=== PATIENT | female | born 1935 | race Caucasian/White ===

== ENCOUNTER 2016-07-04 13:56 | Emergency (ER) | payer MEDICARE ==
[~2016-07-04] VITALS: Ht 165.1 cm; Wt 68.0 kg
[~2016-07-04 13:56] MED LIST: ASPI-110 PO; ATOR40TA16 PO; AZOTAB2 PO; BALSALAZIDE PO; BLOOD GLUCOSE T1 TES; CITA20TA4 PO; D31000TA PO; FOSI40TA PO; GABA300C5 PO; HYDR25TA5 PO; LORA-373 PO; UROCTAB2 PO; VITA200017 PO
[2016-07-04 14:00] VITALS: BP 160/81; PULSE 75; RESP 15; TEMP 97.5; O2SAT 96
[2016-07-04] MEDS ORDERED: BALS750C PO (14:24)
[2016-07-04] MEDS ORDERED: POTAGRA PO (14:24)
[2016-07-04] MEDS ORDERED: CHOL1CAP32 (14:24)
[2016-07-04] MEDS ORDERED: ARTIDRO (14:24)
[2016-07-04] MEDS ORDERED: MULT1TAB (14:24)
[2016-07-04] MEDS ORDERED: TYLE325T PO (14:24)
--- NOTE | 2016-07-04 14:45 | PD ---
HPI Chief Complaint: Fall Time Seen by Provider: 14:35 Travel History International Travel<30 days: No Contact w/Intl Traveler<30days: No Traveled to known affect area: No History of Present Illness HPI 80-year-old female presents for evaluation after mechanical fall. She reports that today she was at the store when she tripped and fell, landing on her right outstretched hand and also twisting her left foot in the process of the fall. She is not having pain in the lateral left foot and right wrist. Pain is aching , worse with movement. Denies any head injury. Denies any neck or back injury. Denies any injury to the torso. She has no other complaints. 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) Coronary Artery Disease: Yes Diabetes: Yes Patient Takes Glucophage: No Diminished Hearing: No Endocrine: No Genitourinary: Yes (SLIGHT PROBLEMS WITH BLADDER) Hypertension: Yes Immune Disorder: No Kidney Stones: Yes Musculoskeletal: Yes Neurologic: Yes Psychiatric: No Reproductive: No Respiratory: No Immunizations Current: Yes ?: Not : 4 Para: 4 Past Surgical History Tonsillectomy: Yes Other Surgery: No Social History Alcohol Use: Yes (GLASS WINE ONCE A WEEK) Tobacco Use: No ("QUIT 40 YEARS AGO" STATED 07/04/16) Substance Use: No Allergies-Medications (Allergen,Severity, Reaction): Coded Allergies: No Known Allergies (Verified , 07/04/16) Reported Meds & Prescriptions Reported Meds & Active Scripts Active Tylenol-Codeine #3 (Acetaminophen-Codeine) 300-30 mg Tab 1-2 Tab PO Q6H PRN Citalopram (Citalopram Hydrobromide) 20 Mg Tab 20 Mg PO DAILY Reported Systane Contacts Soothing Opth Drops (Artificial Tear Solution Opth Drops) 12 Ml Drops QID PRN Tylenol (Acetaminophen) 325 Mg Tab 650 Mg PO Q6H PRN Centrum Silver Adult 50+ (Multiple Vitamins W/ Minerals) 1 Tab Tab D3-1000 (Cholecalciferol) 1,000 Unit Cap Potassium Citrate (Alkalinizer) 1 Gra Gra 10 Meq PO BID Balsalazide 750 Mg Cap 750 Mg PO TID Aspirin 81 (Aspirin) 81 Mg Tabdr 81 Mg PO DAILY 30 Days Hydrochlorothiazide 25 Mg Tab 25 Mg PO DAILY Gabapentin 300 Mg Cap 300 Mg PO HS Fosinopril (Fosinopril Sodium) 40 Mg Tab 40 Mg PO DAILY Atorvastatin (Atorvastatin Calcium) 40 Mg Tab 40 Mg PO HS Review of Systems Cardiovascular: No: Chest Pain or Discomfort, Syncope Musculoskeletal: Positive: Pain Skin: Positive Other (some bruising to the lateral left foot) Neurologic: No: Weakness, Dizziness, Syncope, Headache Physical Exam Narrative GENERAL: Well-developed well-nourished female in no acute distress SKIN: Warm and dry. HEAD: Atraumatic. Normocephalic. EYES: Pupils equal and round. No scleral icterus. No injection or drainage. ENT: No nasal bleeding or discharge. Mucous membranes pink and moist. NECK: Trachea midline. No JVD. CARDIOVASCULAR: Regular rate and rhythm. No murmur appreciated. RESPIRATORY: No accessory muscle use. Clear to auscultation. Breath sounds equal bilaterally. GASTROINTESTINAL: Abdomen soft, non-tender, nondistended. MUSCULOSKELETAL: Generalized mild tenderness to palpation to the right wrist and lateral left foot. There is pain with range of motion of the right wrist and left foot. There is no tenderness to palpation to the ankle joint, calf, knee. No tenderness to palpation to the neck or back. NEUROLOGICAL: Awake and alert. No obvious cranial nerve deficits. Motor grossly within normal limits. Normal speech. Data Data Last Documented VS Vital Signs Date Time Temp Pulse Resp B/P Pulse Ox O2 Delivery O2 Flow Rate FiO2 07/04/16 14:00 97.5 75 15 160/81 96 Orders Foot, Complete ([id number]) (07/04/16 ) Wrist, Complete ([id number]) (07/04/16 ) Splint Or Brace Apply/Monitor (07/04/16 15:03) [facility] Medical Decision Making Medical Screen Exam Complete: Yes Emergency Medical Condition: Yes Medical Record Reviewed: Yes Interpretation(s) Wrist x-ray CONCLUSION: Nondisplaced intra-articular fracture of the distal radius. Foot x-ray reveals chronic changes no acute abnormalities Differential Diagnosis Fracture, sprain, contusion, strain Narrative Course X-ray imaging reveals a nondisplaced intra-articular fracture of the distal radius. Sugar tong splint applied. The patient has seen Dr. Dumont in the past and she is encouraged to follow-up with him or another orthopedist in one week. She'll be given the name of another orthopedist that is unit controller today that she can follow-up with. She does have some pain in left foot that is causing difficulty walking. She does have a walker at home and she is encouraged to use that as needed. Diagnosis Primary Impression: Right wrist fracture Qualified Code: S62.101A - Right wrist fracture, closed, initial encounter Additional Impression: Strain of left foot Qualified Code: S96.912A - Strain of left foot, initial encounter Referrals: Nicolas Mahajan MD, J. Richard Richard MD Additional Instructions: Follow-up with Dr. Dumont or another orthopedist in the next week. Do not remove the splint. Pain medication as needed. Do not drive or drink alcohol when taking this medication. Walker as needed. Return for any emergent medical conditions. Med/Other Pt SpecificInfo: Prescription(s) given, Orthopedic Instructions Scripts Acetaminophen-Codeine (Tylenol-Codeine #3)300-30 mg Tab1-2 Tab PO Q6H PRN (PAIN ) #30 TAB Ref 0 Prov:Jessica Bowers MD 07/04/16 Disposition: 01 DISCHARGE HOME Condition: Stable Hieu Mayer Jul 04, 2016 14:45
--- NOTE | 2016-07-04 14:59 | RADHPO ---
EXAM DATE/TIME: 07/04/2016 14:48 [facility] COMPARISON: No previous studies available for comparison. INDICATIONS : Fell right wrist pain MEDICAL HISTORY : None. SURGICAL HISTORY : None. ENCOUNTER: Initial ACUITY: 1 day PAIN SCORE: 8/10 LOCATION: Right wrist FINDINGS: Three view examination of the right wrist demonstrates a nondisplaced intra-articular fracture of the distal radius. No joint dislocation. Prominent osteoarthritis of the first carpometacarpal joint. Th e distal ulnar is grossly intact. The carpal bones are grossly intact.. CONCLUSION: Nondisplaced intra-articular fracture of the distal radius. Ba Ibarra MD on July 04, 2016 at 14:56 Board Certified Radiologist. This report was verified electronically.
--- NOTE | 2016-07-04 15:00 | RADHPO ---
EXAM DATE/TIME: 07/04/2016 14:47 [facility] COMPARISON: No previous studies available for comparison. INDICATIONS : Fell, left foot pain MEDICAL HISTORY : None. SURGICAL HISTORY : None. ENCOUNTER: Initial ACUITY: 1 day PAIN SCORE: 8/10 LOCATION: Left foot FINDINGS: Three view examination of the left foot demonstrates no definite bony fracture. There is some subluxa tion at the fifth PIP joint which could be chronic in nature. Recommend correlation with point tender ness. There is a heel spur on the plantar surface of the calcaneus. No definite soft tissue swelling. . CONCLUSION: 1. No definite acute bony fracture. 2. Subluxation fifth PIP joint which may be chronic. 3. Heel spur. Ba Ibarra MD on July 04, 2016 at 14:58 Board Certified Radiologist. This report was verified electronically.
[2016-07-04] MEDS ORDERED: TYLETAB34 PO (15:12)
[2016-09-08] MEDS ORDERED: GABA300C5 PO (12:51)
[2016-10-06] MEDS ORDERED: CITA40TA4 PO (10:44)
[2016-10-06] MEDS ORDERED: FLUT1SPR5 EACH NARE (10:52)
== END 2016-07-04 15:33 | disposition home or self-care (01) ==
LOC: PHEFT 13:56
DX: S52.571A Other intraarticular fracture of lower end of right radius, initial encounter for closed fracture (principal); S96.912A Strain of unspecified muscle and tendon at ankle and foot level, left foot, initial encounter; E78.00 Pure hypercholesterolemia, unspecified; I25.10 Atherosclerotic heart disease of native coronary artery without angina pectoris; E11.9 Type 2 diabetes mellitus without complications; I10 Essential (primary) hypertension; Z86.73 Personal history of transient ischemic attack (TIA), and cerebral infarction without residual deficits; Z87.891 Personal history of nicotine dependence; W18.09XA Striking against other object with subsequent fall, initial encounter; Y93.89 Activity, other specified; Y92.512 Supermarket, store or market as the place of occurrence of the external cause; Y99.8 Other external cause status
CPT/HCPCS: 29125; 73110; 73630

== ENCOUNTER → 2017-03-01 | Day surgery (SDC) | payer MEDICARE ==
[~2017-03-01] VITALS: Ht 165.1 cm; Wt 66.5 kg
[~2017-03-01] MED LIST changes: +ARTIDRO; -ASPI-110 PO; +ASPI1TAB57 PO; -AZOTAB2 PO; +BACITRACIN TOP OINT 15 GM TUBE ONE; +BALS750C PO; -BALSALAZIDE PO; -BLOOD GLUCOSE T1 TES; +CALC600T PO; +CHLORHEXIDINE GLUCONATE 2 % 1 PACK (2 CLOTHS) TOPICAL PRN; -CITA20TA4 PO; +CITA40TA4 PO; -D31000TA PO; +FAMOTIDINE 20 MG/2 ML VIAL ONE; +FLUT1SPR5 EACH NARE; +INSULIN HUMAN REGULAR 1,000 UNITS/10 ML VIAL SQ PRN; +LACTATED RINGER'S 1000 ML IV PRN; +LIDOCAINE 1%/EPINEPHrine 1:100,000 SOLN 20 ML VIAL ONE; -LORA-373 PO; +METOPROLOL TARTRATE 25 MG TAB PO PRN; +MIDAZOLAM HCL 2 MG/2 ML VIAL ONE; +MULT1TAB; +POTAGRA PO; +POVIDONE IODINE 5% (ANTISEPSIS KIT) 4 APPLICATIONS EACH NARE PRN; +SODIUM BICARBONATE 8.4% INJ 50 MEQ/50 ML SYR ONE; +SODIUM BICARBONATE 8.4% INJ 50 ML ONE; +SODIUM CHLORID 0.9% 500 ML IV PRN; +TYLE325T PO; -UROCTAB2 PO; +VITA2000 PO; -VITA200017 PO
[2017-03-01] MEDS: ceFAZolin 2 GM PREMIX 50 ML IV SCH ×2 (09:22→10:02)
[2017-03-01 11:00] VITALS: PULSE 78
[2017-03-01 11:30] VITALS: PULSE 73; TEMP 97.6
--- NOTE | 2017-03-01 12:16 | MP ---
cc: EDIE SALDANA M.D. 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 OPERATION Excision frozen section squamous cell carcinoma right cheek, lower eyelid junction, 2.5 x 2 cm full-thickness skin graft from the right neck. SURGEON Dr. Saldana. ANESTHESIA General. 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 The patient underwent explanation of the excision frozen section process, reconstruction with a full-thickness skin graft in order to avoid distortion of the lower eyelid. The patient understands the possibility that the skin graft may or may not take and there may be future surgeries involved. She is willing to go ahead with the same procedure. PROCEDURE The patient was brought to the operating room, was given supine position. Anesthesia was started. Prep and drape was done. IV antibiotic had been given. Time-out was called and completed. The preoperative markings were reinforced. The area was injected with lidocaine 1% with epi and sodium bicarb mixture. Specimen was excised at the subcutaneous level and suture marked superior sent for frozen section. Hemostasis was completed. An oversized graft from the right neck was harvested following a crease line and it was trimmed to mid dermal level. It was applied to the defect with 5-0 Vicryl sutures and the donor site was closed with 4-0 Vicryl sutures as well. Frozen section report issued in the meantime indicated clear margins. The graft insetting was completed. A sterile dressing was applied. The patient remained stable. Intraoperative blood loss was less than 5 ccs. No complications. MD JONATHAN Morgan/KAROLINE /11:03 AM /12:08 PM
[2017-03-01 12:20] VITALS: BP 137/78; PULSE 69; RESP 14; O2SAT 98
== END | disposition home or self-care (01) ==
LOC: PHSDC 07:31
PROVIDERS: ATTEND Plastic Surgery
DX: D04.39 Carcinoma in situ of skin of other parts of face (principal); E11.9 Type 2 diabetes mellitus without complications; M54.2 Cervicalgia; H81.10 Benign paroxysmal vertigo, unspecified ear; K51.90 Ulcerative colitis, unspecified, without complications; R07.89 Other chest pain; R00.2 Palpitations
CPT/HCPCS: 00300; 11643; 15240; 88305; 88331; J0690; J2250; J7120

== ENCOUNTER 2017-08-16 14:22 | Emergency (ER) | payer MEDICARE ==
[~2017-08-16] VITALS: Ht 165.1 cm; Wt 68.7 kg
[~2017-08-16 14:22] MED LIST changes: -BACITRACIN TOP OINT 15 GM TUBE ONE; -CHLORHEXIDINE GLUCONATE 2 % 1 PACK (2 CLOTHS) TOPICAL PRN; +CYMB30CA PO; -FAMOTIDINE 20 MG/2 ML VIAL ONE; -HYDR25TA5 PO; -INSULIN HUMAN REGULAR 1,000 UNITS/10 ML VIAL SQ PRN; -LACTATED RINGER'S 1000 ML IV PRN; -LIDOCAINE 1%/EPINEPHrine 1:100,000 SOLN 20 ML VIAL ONE; -METOPROLOL TARTRATE 25 MG TAB PO PRN; -MIDAZOLAM HCL 2 MG/2 ML VIAL ONE; -POVIDONE IODINE 5% (ANTISEPSIS KIT) 4 APPLICATIONS EACH NARE PRN; -SODIUM BICARBONATE 8.4% INJ 50 MEQ/50 ML SYR ONE; -SODIUM BICARBONATE 8.4% INJ 50 ML ONE; -SODIUM CHLORID 0.9% 500 ML IV PRN
[2017-08-16 14:29] VITALS: BP 162/81; PULSE 85; RESP 16; TEMP 97.8; O2SAT 98
--- NOTE | 2017-08-16 15:11 | PD ---
HPI Chief Complaint: Fall Time Seen by Provider: 14:44 Travel History International Travel<30 days: No Contact w/Intl Traveler<30days: No Traveled to known affect area: No History of Present Illness HPI The patient was seen and examined in the presence of the nurse. This patient complains of an arm injury. She tripped over something outside and scraped her right arm on a cinderblock. She developed a skin tear. Duration 2 hours. She believes she hit her head as well. However she has no LOC or headache or neck pain. 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) Coronary Artery Disease: Yes Diabetes: Yes (TYPE 2 (NIDDM)) Patient Takes Glucophage: No Diminished Hearing: No Endocrine: No Gastrointestinal Disorders: Yes (GERD, COLITIS, HEMORRHOIDS) Genitourinary: Yes (HYPERACTIVE BLADDER, HX URETAL STONE) Hiatal Hernia: No Hypertension: Yes Immune Disorder: No Kidney Stones: Yes Musculoskeletal: Yes (NECK PAIN, OA KNEE, OSTEOPOROSIS, BILAT FRACTURED WRIST) Neurologic: Yes (TIA ) Psychiatric: No Reproductive: No Respiratory: No Immunizations Current: Yes Thyroid Disease: No Influenza Vaccination: Yes ?: Not : 4 Para: 4 Past Surgical History Abdominal Surgery: No AICD: No Cardiac Surgery: No Ear Surgery: No Endocrine Surgery: No Eye Surgery: Yes (BILAT CATARACT) Genitourinary Surgery: Yes (CYSTOSCOPY, L URETERAL STENT) Gynecologic Surgery: No Joint Replacement: Yes (RIGHT TKR) Oral Surgery: No Pacemaker: No Thoracic Surgery: No Tonsillectomy: Yes Other Surgery: No Social History Alcohol Use: Yes (GLASS WINE ONCE A WEEK) Tobacco Use: No ("QUIT 40 YEARS AGO" STATED 07/04/16) Substance Use: No Allergies-Medications (Allergen,Severity, Reaction): Coded Allergies: No Known Allergies (Verified Allergy, Unknown, 08/16/17) Reported Meds & Prescriptions Reported Meds & Active Scripts Active Fosinopril (Fosinopril Sodium) 40 Mg Tab 40 Mg PO DAILY Calcium/Vitamin D (Calcium Carbonate-Vitamin D) 600-400 Mg-Unit Tab 2 Tab PO BID Citalopram (Citalopram Hydrobromide) 40 Mg Tab 40 Mg PO DAILY Gabapentin 300 Mg Cap 300 Mg PO HS Reported Vitamin D3 (Cholecalciferol) 2,000 Unit Cap 2,000 Units PO DAILY Centrum Silver Adult 50+ (Multiple Vitamins W/ Minerals) 1 Tab Tab Potassium Citrate (Alkalinizer) 1 Gra Gra 10 Meq PO BID Balsalazide 750 Mg Cap 750 Mg PO TID Aspirin 81 (Aspirin) 81 Mg Tabdr 81 Mg PO DAILY 30 Days Review of Systems General / Constitutional: No: Fever HENT: No: Sore Throat Respiratory: No: Cough Gastrointestinal: No: Vomiting Physical Exam Narrative Right arm: There is a skin tear distal to the elbow. Skin is sloughed off and there is nothing to close or repair. SKIN: Focused skin assessment reveals no rash or ulcers. Skin is warm and dry. Palpation shows no induration or nodules. Psych: Normal mood and affect. Normal insight and judgment. NEUROLOGICAL: Awake and alert. Pupils are equal round and reactive. Motor and sensory grossly within normal limits. Five out of 5 muscle strength in all muscle groups. Normal speech. Data Data Last Documented VS Vital Signs Date Time Temp Pulse Resp B/P (MAP) Pulse Ox O2 Delivery O2 Flow Rate FiO2 08/16/17 14:29 97.8 85 16 162/81 (108) 98 MDM Medical Decision Making Medical Screen Exam Complete: Yes Emergency Medical Condition: Yes Medical Record Reviewed: Yes Differential Diagnosis Skin tear, laceration, contusion Narrative Course I have reviewed the patient's electronic medical record. Her wound is clean and dressed. Nothing to suture or repair. It will have to heal in on its own. Diagnosis Primary Impression: Skin tear of right upper arm without complication Qualified Codes: S41.111A - Laceration without foreign body of right upper arm , initial encounter Additional Instructions: The patient was advised to follow up with their physician and return if they worsen. Med/Other Pt SpecificInfo: Other Disposition: 01 DISCHARGE HOME Condition: Stable Greyson Varghese MD Aug 16, 2017 15:11
== END 2017-08-16 15:45 | disposition home or self-care (01) ==
LOC: PHED 14:22
DX: S41.111A Laceration without foreign body of right upper arm, initial encounter (principal); W01.198A Fall on same level from slipping, tripping and stumbling with subsequent striking against other object, initial encounter; F41.9 Anxiety disorder, unspecified; E78.00 Pure hypercholesterolemia, unspecified; E11.9 Type 2 diabetes mellitus without complications; I10 Essential (primary) hypertension; I25.10 Atherosclerotic heart disease of native coronary artery without angina pectoris; Z86.73 Personal history of transient ischemic attack (TIA), and cerebral infarction without residual deficits; Z87.891 Personal history of nicotine dependence
CPT/HCPCS: 99283

== ENCOUNTER 2017-12-31 09:54 | Observation (INO) ==
--- NOTE | 2017-12-23 15:49 | MH ---
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 HISTORY OF PRESENT ILLNESS: This pleasant 82-year-old female is being admitted today for revision total knee arthroplasty due to failure of implant. OTHER PAST HISTORY: The total knee was done over 7 years ago and is a Biomet knee. PAST MEDICAL HISTORY: The patient has a history of previous stroke, kidney disease, hypertension, diabetes, arthritis, and anxiety. CURRENT MEDICATIONS: Include: 1. Atorvastatin. 2. Fosinopril. 2. Fluticasone nasal spray. 3. Gabapentin. 4. Methylprednisolone. PAST SURGICAL HISTORY: Right total knee arthroplasty in the past. REVIEW OF SYSTEMS: Noncontributory. FAMILY HISTORY: Noncontributory. She does not smoke. She drinks socially. ALLERGIES: NO KNOWN ALLERGIES. PHYSICAL EXAMINATION: GENERAL: We find an 82-year-old female, well developed, well nourished, alert and oriented x 3, complaining of pain in her right knee. VITAL SIGNS: Blood pressure 136/80, pulse 80 and regular, respirations 16, temperature 98.1, pulse oximetry 96% on room air. HEENT: PERRL, EOMI. Ears, nose, and throat clear. NECK: Supple. LUNGS: Clear. HEART: Regular rate. ABDOMEN: Soft, positive bowel sounds, nontender. EXTREMITIES: Reveal the right knee to have 2+ swelling. Neurovascularly intact to her toes. IMPRESSION: Failed right total knee arthroplasty. PLAN: Admission for right total knee arthroplasty revision today. The patient understands the procedure well given a prescription for postoperative pain and anticoagulation control in the office. Plans are going to [facility] facility after surgical stay in the hospital. Kevin Dumont MD JRGayathri/hernesto , 03:27 PM , 03:36 PM
[2017-12-31] MEDS ORDERED: Metoprolol Tartrate 25 MG Tablet PO SCH (10:42)
[2017-12-31] MEDS ORDERED: Chlorhexidine Gluconate 2% 1 Pack (2 Cloths) TOPICAL SCH (10:42)
[2017-12-31] MEDS ORDERED: Chlorhexidine 4% Topical 120 APPLIC/120 ML Bottle TOPICAL SCH (11:00)
[2017-12-31] MEDS ORDERED: Sodium Chlor 0.9% Inj 500 ML IV.SIG SCH (11:00)
[2017-12-31] MEDS ORDERED: Sodium Chlor 0.9% Inj 40 ML, Bupivacaine Liposo PF 1.3% Inj 20 ML P-ARTICULR SCH ×2 (11:00)
[2017-12-31] MEDS ORDERED: Ropivacaine 0.5% PF Inj 20 ML Vial ONE (12:45)
[2017-12-31] MEDS ORDERED: Post-op Orders (for Pharmacy) OTHER STA (12:55)
[2017-12-31] MEDS ORDERED: Morphine Inj 4 MG/ML Vial IV.PUSH PRN (12:55)
[2017-12-31] MEDS ORDERED: Bisacodyl 10 MG Supp RECTAL PRN (12:55)
[2017-12-31] MEDS ORDERED: Tranexamic Acid Inj 1,000 MG in Sodium Chlor 0.9% Inj 100 ML IV.SIG SCH (13:00)
[2017-12-31] MEDS ORDERED: Lidocaine PF 1% Inj 5 ML Syringe OTHER ONE (13:00)
[2017-12-31] MEDS ORDERED: Tranexamic Acid Inj 1,000 MG/10 ML Ampul ONE (14:46)
--- NOTE | 2017-12-31 16:03 | P.BOP ---
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
[2017-12-31] MEDS ORDERED: fentaNYL Citrate Inj 100 MCG/2 ML Ampul ONE ×2 (16:10)
--- NOTE | 2017-12-31 17:01 | XR ---
EXAM DATE: 12/31/2017 4:49 PM EDT AGE/SEX: 82 years / Female INDICATIONS: Status post right total knee arthroplasty. CLINICAL DATA: This is the patient's initial encounter. Patient reports that signs and symptoms have been present for 1 day and indicates a pain score of Nonresponsive. MEDICAL/SURGICAL HISTORY: None. None. COMPARISON: No prior exams available for comparison. FINDINGS: Total knee arthroplasty with normal alignment of the femoral and tibial components. Soft tissue gas a bout the suprapatellar region. No distention of the suprapatellar soft tissues. External brace. CONCLUSION: Postoperative total knee arthroplasty with expected postsurgical findings. Electronically signed by: Avi Frederick MD 12/31/2017 5:00 PM EDT
[2017-12-31] MEDS: BALSALAZIDE 750 MG PO SCH (17:29)
--- NOTE | 2017-12-31 19:25 | MP ---
cc: Kevin Dumont MD DATE OF OPERATION: 12/31/2017 PREOPERATIVE DIAGNOSIS: Failed right total knee arthroplasty. POSTOPERATIVE DIAGNOSIS: Failed right total knee arthroplasty. SURGERY PERFORMED: Revision of patellar and tibial insert, right knee. SURGEON: Kevin Dumont MD TICK INSPECTOR: BRYAN Gonzalez ANESTHESIA: General intubation. DESCRIPTION OF PROCEDURE: The patient was brought to the operating room and placed on the operating table in supine position. After successful induction of general anesthesia, the patient's right knee, thigh and leg were prepped and draped in the usual manner. An incision was then made through the old anterior medial parapatellar incision, 9 inches in length, and carried down through the subcutaneous tissue and deep fascia to the joint. Clear serous fluid removed and sent to the lab for a stat Gram stain, which revealed a few white cells, no bacteria seen. Abundant scar was noted throughout the knee joint. The knee prior to surgery only had range of motion from -5 of extension to 80 of flexion. After releasing, she had full extension and full flexion to 130 degrees. The patella was found to be completely covered over with a scar and the scar removed and then the patella was noted to be loose and removed easily. A size small patella was selected with a single peg, the single peg hole drilled and the small patella fit perfectly. The trial was inserted. Next, the knee was flexed and all scar debrided from the femur and tibia. The tibial insert was removed by removing the clamp on the tibial insert and some wear was noted. There was quite a few fragments of cement noted throughout the knee joint, which most likely contributed to the grinding the patient felt prior to surgery. The wound was then irrigated copiously with antibiotic solution and 1 gram of IV vancomycin and 2 of Ancef given to the patient. Tourniquet deflated at this point, total tourniquet time being 51 minutes at 300 mmHg pressure. Meticulous hemostasis achieved with the help of TXA as well. Then, 20 of Exparel and 40 of normal saline was injected around the knee joint for extra pain control. A liner was then exchanged for the old liner, which was worn, size 10 x 63/67. The patella size was a 31 x 8 mm patella. After the new liner was inserted and the clip put in, full range of motion was appreciated. The patella was cemented in place using 1 batch of antibiotic Biomet cement. After the cement hardened and excess cement removed, the deep fascia was approximated with running #2 Quill, subcutaneous tissue approximated with running 2-0 and 3-0 Quill suture and a Prineo dressing and knee immobilizer. No drain utilized. Estimated blood loss was 30 mL. Sponge and suture counts were correct. The patient tolerated the procedure well and left the operating room in stable condition. BRYAN Gonzalez, was present during the entire procedure to include patient positioning and the procedure. The medical necessity of a nurse practitioner nurse first assist was indicated in this case due to the surgical complexity of the case itself. During the surgical case, the digital camera technician was working the back table while my surgical technologist BRYAN was directly assisting me. J. MD CHIP Silver/raymon , 03:35 PM , 03:45 PM
[2017-12-31] MEDS: Senna/Docusate Sodium 8.6/50 MG Tablet PO SCH (22:07)
[2017-12-31] MEDS: Gabapentin 300 MG Capsule PO SCH (22:08)
[2017-12-31] MEDS: Multivitamin/Minerals Therapeutic Tablet PO SCH (22:08)
[2018-01-01 05:38] LABS: Hematocrit 29.3 % (35.0-46.0); Hemoglobin 9.9 gm/dL (11.6-15.3)
[2018-01-01] MEDS ORDERED: Citalopram 20 MG Tablet PO SCH ×2 (09:00)
[2018-01-01] MEDS: Potassium Chloride 10 MEQ ER Capsule PO SCH ×2 (09:56→20:55)
[2018-01-01] MEDS: Calcium/Vitamin D 250/125 MG Tablet PO SCH (09:56)
[2018-01-01] MEDS: Multivitamin/Minerals Therapeutic Tablet PO SCH ×2 (09:56→20:55)
[2018-01-01] MEDS: Lisinopril 20 MG Tablet PO SCH (09:56)
[2018-01-01] MEDS: Senna/Docusate Sodium 8.6/50 MG Tablet PO SCH ×2 (09:56→20:55)
--- NOTE | 2018-01-01 10:19 | P.PNOP ---
Subjective Interval history: Pt having some pain in knee today. Physical Exam Vital signs: Vital Signs 12/31/17 10:30 12/31/17 15:58 12/31/17 16:15 Temperature 98.3 F 98.1 F Pulse Rate 74 78 73 Respiratory Rate 18 16 16 Blood Pressure 181/85 H 131/60 171/72 H Pulse Oximetry 95 95 12/31/17 16:30 12/31/17 16:45 12/31/17 17:00 Temperature 97.2 F L Pulse Rate 76 73 75 Respiratory Rate 16 16 18 Blood Pressure 174/77 H 171/76 H 177/84 H Pulse Oximetry 95 95 97 12/31/17 18:46 12/31/17 20:00 12/31/17 23:00 Temperature 98 F Pulse Rate 79 Respiratory Rate 18 18 18 Blood Pressure 154/69 H Pulse Oximetry 98 01/01/18 00:00 01/01/18 04:00 01/01/18 08:00 Temperature 97.8 F 97.8 F 98.8 F Pulse Rate 92 H 79 94 H Respiratory Rate 16 18 18 Blood Pressure 117/74 142/64 H 111/60 Pulse Oximetry 95 96 96 Intake & Output 12/31/17 01/01/18 01/01/18 18:59 06:59 18:59 Intake Total 1999 / 1999 1680 / 1680 Output Total 650 / 650 Balance 1350 / 1350 1680 / 1680 Weight 68.9 kg 69.7 kg Intake: IV 1000 / 1000 1200 / 1200 LR 1000 mL Inj 1,000 ML @ 80 1000 / 1000 mls/hr IV.CONT .[id number] JOHN Rx# :[id number] LR 1000 mL Inj 1,000 ML @ 30 1000 / 1000 mls/hr IV.SIG .Q24H JOHN Rx#: [id number] Ancef Inj 1,000 MG In NS Inj 200 / 200 100 ML @ 200 mls/hr IV.SIG Q6H JOHN Rx#:[id number] Oral 480 / 480 Anesthesia Amount 1000 / 1000 Output: Urine 350 / 350 Estimated Blood Loss 300 / 300 Other: # Voids 1 3 Date of Last Bowel Movement 12/30/17 12/30/17 Weight On Admission 68.9 kg - Constitutional no acute distress Results - Labs CBC & Chem 7: 01/01/18 04:44 Laboratory Results - last 24 hr 12/31/17 01/01/18 11:27 04:44 Hgb 9.9 L Hct 29.3 L Blood Type B Positive Blood Type Recheck Required Antibody Screen Negative Microbiology 12/31/17 13:38 Wound - Knee Gram Stain - Final - Imaging Impressions Knee X-Ray 12/31/17 12:55 CONCLUSION: Postoperative total knee arthroplasty with expected postsurgical findings. Assessment and Plan - Attending Attestation Attending Attestation: Sitting in chair, NV intact to toes. Dressing dry and intact. No calf tenderness. Plan PT today possible dc to home tomorrow with [facility] and PT.
--- NOTE | 2018-01-01 10:20 | P.DCO ---
- Physical Therapy Order: Evaluate and treat, Improve ambulation, Strength and gait training - Home Health Nursing Order: Medical education, Nursing assessment with vital signs - Certification I have seen patient Adilia Jay on 01/01/18. My clinical findings support the need for the requested home health care services because: High risk of falls I certify that my clinical findings support that this patient is homebound because: Post-op weakness, Unsteady gait/balance
[2018-01-01] MEDS: BALSALAZIDE 750 MG PO SCH ×3 (10:42→17:49)
--- NOTE | 2018-01-01 11:52 | P.CONFP ---
History of Present Illness Service: Family Practice <Torres Morrow 01/01/18 11:52> Consult date: 01/01/18 <Torres Morrow 01/01/18 11:52> Requesting Physician: Bc Dumont <Torres Morrow 01/01/18 11:52> Reason for Consult: Medical Management <Torres Morrow 01/01/18 11:52> Primary Care Provider: Radha Montalvo MD <Treva Mittal - 01/06/18 15:56> Radha Montalvo MD <oTrres Morrow 01/01/18 11:52> Family Provider: Radha Montalvo MD <Treva Mittal - 01/06/18 15:56> Radha Montalvo MD <Torres Morrow 01/01/18 11:52> History of Present Illness: Mrs. Jay is a 82-year-old female admitted for revision of her right knee arthroplasty. Patient reports that after her previous knee replacement "some plastic broke" requiring her to have revision. Dr. Dumont completed an uncomplicated revision of her right knee arthroplasty on 12/31/17. Today patient states that she is doing well with minimal right knee pain. She reports that she is already had one session of physical therapy that "went well." She was notified by her surgical team that she will likely be discharged home either "tomorrow or the next day." She reports no bowel movements, however she does report moving bowel gas. She is unable to provide a complete medical history and medication review possibly due to recent pain medication versus mild dementia. Medication review and history will be obtained from chart review. Otherwise she has no acute complaints and denies a complete review of systems including but not limited to any fevers, chills, shortness of breath, chest pain, NVD, abdominal pain, or calf tenderness at this time. <Torres Morrow 01/01/18 11:52> Review of Systems Per HPI <Torres Morrow 01/01/18 11:52> PMFSH - History History Provided By: Patient <Torres Morrow 01/01/18 11:52> - Medical History Medical History: Medical History (Last Reviewed 01/01/18 @ 08:03 by Hilary Myers) History of kidney stones Anxiety Arthritis Constipation Depression Diabetes High cholesterol History of blood product transfusion Hypertension Joint pain Overactive bladder TIA (transient ischemic attack) Urinary frequency Wears glasses <Treva Mittal - 01/06/18 15:56> Medical History (Last Reviewed 01/01/18 @ 08:03 by Hilary Myers) History of kidney stones Anxiety Arthritis Constipation Depression Diabetes High cholesterol History of blood product transfusion Hypertension Joint pain Overactive bladder TIA (transient ischemic attack) Urinary frequency Wears glasses <Torres Morrow 01/01/18 11:52> - Surgical History Surgical History: Surgical History (Last Reviewed 01/01/18 @ 08:03 by Hilary Myers) History of adenoidectomy History of arthroplasty of right knee History of cataract removal with insertion of prosthetic lens <Treva Mittal 01/06/18 15:56> Surgical History (Last Reviewed 01/01/18 @ 08:03 by Hilary Myers) History of adenoidectomy History of arthroplasty of right knee History of cataract removal with insertion of prosthetic lens <Torres Morrow 01/01/18 11:52> - Tobacco History Second Hand Smoke Exposure: No <Torres Morrow 01/01/18 11:52> Smoking Status: Former smoker <Torres Morrow 01/01/18 11:52> - Alcohol History How Often Do You Have a Drink Containing Alcohol: 2 to 3 times a week <Torres Morrow Gianni Yumiko 01/01/18 11:52> - Substance Use History Substance History: No History of Abuse <Torres Morrow Gianni Yumiko 01/01/18 11:52> - Travel History [facility] Within the Last 8 Weeks: No <Torres Morrow Gianni 11:52> Recent Travel Out of the Country Within the Last 8 Weeks: No <Torres Morrow Gianni 01/01/18 11:52> - Immunization History Tetanus Immunization: <5 Years <Torres Morrow Gianni 01/01/18 11:52> Hx Influenza Vaccine This Season: Yes <Torres Morrow 01/01/18 11:52> Medications and Allergies Allergies Allergy/AdvReac Type Severity Reaction Status Date / Time No Known Allergies Allergy Verified 12/31/17 10:45 <Treva Mittal 01/06/18 15:56> Home Medications Medication Instructions Recorded Confirmed Type amoxicillin 250 mg PO TID 12/21/17 12/31/17 History aspirin [Adult Low Dose Aspirin] 81 mg PO DAILY 12/21/17 12/31/17 History atorvastatin 40 mg PO DAILY 12/21/17 12/31/17 History balsalazide 750 mg PO TID 12/21/17 12/31/17 History calcium carbonate-vitamin D3 1 cap PO DAILY 12/21/17 12/31/17 History [Calcium 600 with Vitamin D3] citalopram 20 mg PO HS 12/21/17 01/01/18 History duloxetine 60 mg PO DAILY 12/21/17 12/31/17 History fosinopril 40 mg PO DAILY 12/21/17 12/31/17 History gabapentin 300 mg PO HS 12/21/17 12/31/17 History potassium citrate 10 meq PO BID 12/21/17 12/31/17 History <Treva Mittal M - 01/06/18 15:56> Active Medications: Active Medications Hydrocodone Bitart/Acetaminophen (Edmond 7.5/325) 1 tab PO Q4H PRN PRN Reason: PAIN LESS THAN 5 ON SCALE Last Admin: 01/01/18 10:18 Dose: 1 tab Hydrocodone Bitart/Acetaminophen (Edmond 7.5/325) 2 tab PO Q6H PRN PRN Reason: PAIN SCALE 5 TO 10 Al Hydroxide/Mg Hydroxide (Milk Of Magnesia Liq) 30 ml PO BID PRN PRN Reason: Mild Constipation Apixaban (Eliquis) 2.5 mg PO BID [facility] Aspirin (Ecotrin) 81 mg PO DAILY [facility] Last Admin: 01/01/18 09:56 Dose: 81 mg Atorvastatin Calcium (Lipitor) 40 mg PO DAILY [facility] Last Admin: 01/01/18 09:56 Dose: 40 mg Bisacodyl (Dulcolax Supp) 10 mg RECTAL DAILY PRN PRN Reason: SEVERE CONSITIPATION Calcium/Vitamin D (Oscal With D 250/125 Mg) 2 tab PO DAILY [facility] Last Admin: 01/01/18 09:56 Dose: 2 tab Chlorhexidine Gluconate (Chlorhexidine 2% Cloth) 3 pack [employer] [facility] Last Admin: 12/31/17 10:33 Dose: 3 pack Chlorhexidine Gluconate (Hibiclens 4% Topical) 1 applicatio [employer] [facility] Last Admin: 12/31/17 10:30 Dose: 1 applicatio Citalopram Hydrobromide (Celexa) 20 mg PO DAILY [facility] Duloxetine HCl (Cymbalta) 60 mg PO DAILY [facility] Gabapentin (Neurontin) 300 mg PO HS [facility] Last Admin: 12/31/17 22:08 Dose: 300 mg Lactated Ringer's (Lr 1000 Ml Inj) 1,000 mls @ 30 mls/hr IV.SIG .Q24H [facility] Last Infusion: 12/31/17 14:15 Dose: Infused Sodium Chloride (Ns Inj) 500 mls @ 30 mls/hr IV.SIG .Q10H [facility] Last Admin: 12/31/17 11:32 Dose: Not Given Lactated Ringer's (Lr 1000 Ml Inj) 1,000 mls @ 80 mls/hr IV.CONT .[id number] [facility] Last Infusion: 01/01/18 05:00 Dose: Infused Lactulose (Lactulose Liq) 30 ml PO DAILY PRN PRN Reason: SEVERE CONSITIPATION Lisinopril (Prinivil) 40 mg PO DAILY [facility] Last Admin: 01/01/18 09:56 Dose: 40 mg Metoprolol Tartrate (Lopressor) 25 mg PO [employer] [facility] Stop: 01/03/18 10:41 Last Admin: 12/31/17 11:32 Dose: Not Given Miscellaneous Information ([facility]) 1 each OTHER UNSCH PRN PRN Reason: SEE LABEL COMMENTS Stop: 01/01/18 15:58 Morphine Sulfate (Morphine Inj) 2 mg IV.PUSH Q3H PRN PRN Reason: BREAKTHROUGH PAIN Multivitamins/Minerals (Theragran-M) 1 tab PO BID [facility] Stop: 03/01/18 20:59 Last Admin: 01/01/18 09:56 Dose: 1 tab Ondansetron HCl (Zofran Odt) 4 mg PO Q6H PRN PRN Reason: NAUSEA OR VOMITING Patient Own Medication ( Balsalazide [ Balsalazide] 750 Mg) 0 each PO TID [facility] Last Admin: 01/01/18 10:42 Dose: Not Given Potassium Chloride (Kcl) 10 meq PO BID [facility] Last Admin: 01/01/18 09:56 Dose: 10 meq Povidone Iodine (Betadine 5% Antisepsis Kit) 1 applicatio EACH [employer] [facility] Stop: 01/03/18 10:41 Last Admin: 12/31/17 11:33 Dose: Not Given Senna/Docusate Sodium (Manisha-Colace) 1 tab PO BID [facility] Last Admin: 01/01/18 09:56 Dose: 1 tab Sennosides (Senokot) 17.2 mg PO BID PRN PRN Reason: Moderate Constipation Sodium Chloride (Ns Flush) 2 ml IV.FLUSH BID [facility] Last Admin: 01/01/18 10:00 Dose: 2 ml Sodium Chloride (Ns Flush) 2 ml IV.FLUSH PRN PRN PRN Reason: FLUSH AFTER USING IV ACCESS <Torres Morrow H - 01/01/18 11:52> Exam Vital signs: Vital Signs 12/31/17 15:58 12/31/17 16:15 12/31/17 16:30 Temperature 98.1 F Pulse Rate 78 73 76 Respiratory Rate 16 16 16 Blood Pressure 131/60 171/72 H 174/77 H Pulse Oximetry 95 95 95 12/31/17 16:45 12/31/17 17:00 12/31/17 18:46 Temperature 97.2 F L Pulse Rate 73 75 Respiratory Rate 16 18 18 Blood Pressure 171/76 H 177/84 H Pulse Oximetry 95 97 12/31/17 20:00 12/31/17 23:00 01/01/18 00:00 Temperature 98 F 97.8 F Pulse Rate 79 92 H Respiratory Rate 18 18 16 Blood Pressure 154/69 H 117/74 Pulse Oximetry 98 95 01/01/18 04:00 01/01/18 08:00 Temperature 97.8 F 98.8 F Pulse Rate 79 94 H Respiratory Rate 18 18 Blood Pressure 142/64 H 111/60 Pulse Oximetry 96 96 Intake & Output 12/31/17 01/01/18 01/01/18 18:59 06:59 18:59 Intake Total 1999 / 1999 1680 / 1680 Output Total 650 / 650 Balance 1350 / 1350 1680 / 1680 Weight 68.9 kg 69.7 kg Intake: IV 1000 / 1000 1200 / 1200 LR 1000 mL Inj 1,000 ML @ 80 1000 / 1000 mls/hr IV.CONT .[id number] [facility] Rx# :[id number] LR 1000 mL Inj 1,000 ML @ 30 1000 / 1000 mls/hr IV.SIG .Q24H [facility] Rx#: [id number] Ancef Inj 1,000 MG In NS Inj 200 / 200 100 ML @ 200 mls/hr IV.SIG Q6H [facility] Rx#:[id number] Oral 480 / 480 Anesthesia Amount 1000 / 1000 Output: Urine 350 / 350 Estimated Blood Loss 300 / 300 Other: # Voids 1 3 Date of Last Bowel Movement 12/30/17 12/30/17 12/30/17 Weight On Admission 68.9 kg <Torres Morrow - 01/01/18 11:52> Narrative: GENERAL: Elderly female sitting up in chair watching television in no acute distress. SKIN: Warm and dry. No rash. HEENT: Atraumatic, normocephalic with extraocular motions intact. No rhinorrhea. No visible lymphadenopathy or jugulovenous distension appreciated. CARDIOVASCULAR: Regular rate and rhythm without obvious murmurs, gallops, or rubs. 2+ pulses in all four extremities. RESPIRATORY: Clear to auscultation bilaterally with no crackles, wheezes, or rhonchi. No increased work of breathing. GASTROINTESTINAL: Abdomen soft, non-tender, nondistended with positive bowel sounds. No masses appreciated. MUSCULOSKELETAL: No cyanosis or edema. No left calf tenderness. RLE: Right lower extremity currently Saroj wrapped with device for icing the knee in place. Saroj wrap CDI. 2+ DP/PT pulses. Appropriate capillary refill. Normal range of motion at the ankle and digits. NEURO/PSYCH: Afocal. Awake, alert, and oriented x3, however unable to provide a complete review of systems and history possibly secondary to pain medication versus possible dementia. Normal speech and judgement. <Torres Morrow H - 01/01/18 11:52> Results - Labs Result diagrams: 01/02/18 05:02 01/02/18 05:02 <Treva Mittal - 01/06/18 15:56> Abnormal lab results 01/01/18 Range/Units 04:44 Hgb 9.9 L (11.6-15.3) gm/dL Hct 29.3 L (35.0-46.0) % Short CBC 01/01/18 Range/Units 04:44 Hgb 9.9 L (11.6-15.3) gm/dL Hct 29.3 L (35.0-46.0) % <Torres Morrow H - 01/01/18 11:52> - Imaging Impressions Knee X-Ray 12/31/17 12:55 CONCLUSION: Postoperative total knee arthroplasty with expected postsurgical findings. 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 Code(s): T84.012A - Broken internal right knee prosthesis, initial encounter Status: Acute (3) History of TIA (transient ischemic attack) Code(s): Z86.73 - Personal history of transient ischemic attack (TIA), and cerebral infarction without residual deficits Status: Acute (4) GERD (gastroesophageal reflux disease) Code(s): K21.9 - Gastro-esophageal reflux disease without esophagitis Status: Acute Qualifiers: Esophagitis presence: esophagitis presence not specified Qualified Code(s) : K21.9 - Gastro-esophageal reflux disease without esophagitis (5) Overactive bladder Code(s): N32.81 - Overactive bladder Status: Acute (6) Type 2 diabetes mellitus Code(s): E11.9 - Type 2 diabetes mellitus without complications Status: Acute (7) Hypertension Code(s): I10 - Essential (primary) hypertension Status: Acute Qualifiers: Hypertension type: essential hypertension Qualified Code(s): I10 - Essential (primary) hypertension (8) Hyperlipidemia Code(s): E78.5 - Hyperlipidemia, unspecified Status: Acute Qualifiers: Hyperlipidemia type: unspecified Qualified Code(s): E78.5 - Hyperlipidemia , unspecified (9) Ulcerative colitis Code(s): K51.90 - Ulcerative colitis, unspecified, without complications Status: Acute (10) Anxiety Code(s): F41.9 - Anxiety disorder, unspecified Status: Acute (11) Nutrition, metabolism, and development symptoms Code(s): R63.8 - Other symptoms and signs concerning food and fluid intake Status: Acute (12) DVT prophylaxis Status: Acute <Treva Mittal - 01/06/18 15:56> (1) Status post revision of total replacement of right knee Code(s): Z96.651 - Presence of right artificial knee joint Status: Acute Plan: Patient admitted under orthopedic surgery service for revision of her right knee arthroplasty Procedure uncomplicated per report Patient currently without complaint and pain controlled Continue with hydrocodone as needed for pain Patient to continue with PT Per orthopedic surgery, plan for possible discharge home tomorrow with home health and physical therapy (2) 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 Code(s): T84.012A - Broken internal right knee prosthesis, initial encounter Status: Acute Plan: Please see plan as above (3) History of TIA (transient ischemic attack) Code(s): Z86.73 - Personal history of transient ischemic attack (TIA), and cerebral infarction without residual deficits Status: Acute Plan: Patient with history of TIA Continue home aspirin (4) GERD (gastroesophageal reflux disease) Code(s): K21.9 - Gastro-esophageal reflux disease without esophagitis Status: Acute Qualifiers: Esophagitis presence: esophagitis presence not specified Qualified Code(s) : K21.9 - Gastro-esophageal reflux disease without esophagitis Plan: Patient with history of gastroesophageal reflux disease Calcium carbonate as needed for reflux (5) Overactive bladder Code(s): N32.81 - Overactive bladder Status: Acute Plan: Patient with history of overactive bladder Continue Toviaz, patient to bring medication for verification as it is not on formulary (6) Type 2 diabetes mellitus Code(s): E11.9 - Type 2 diabetes mellitus without complications Status: Acute Plan: Patient with previous history of type 2 diabetes mellitus Patient currently controlling glucose via dietary measures with most recent hemoglobin A1c per chart review of 6.2 Diabetic diet ordered -Patient to continue with daily gabapentin for diabetic neuropathy BMP in a.m. (7) Hypertension Code(s): I10 - Essential (primary) hypertension Status: Acute Qualifiers: Hypertension type: essential hypertension Qualified Code(s): I10 - Essential (primary) hypertension Plan: Patient with a history of essential hypertension Continue with lisinopril 40 mg daily (8) Hyperlipidemia Code(s): E78.5 - Hyperlipidemia, unspecified Status: Acute Qualifiers: Hyperlipidemia type: unspecified Qualified Code(s): E78.5 - Hyperlipidemia , unspecified Plan: Patient with history of hyperlipidemia Continue with atorvastatin 40 mg daily (9) Ulcerative colitis Code(s): K51.90 - Ulcerative colitis, unspecified, without complications Status: Acute Plan: Patient with history of ulcerative colitis -Continue with Balsalazide 3 times daily, patient to bring medication for pharmacy verification as it is not on formulary (10) Anxiety Code(s): F41.9 - Anxiety disorder, unspecified Status: Acute Plan: Patient with history of anxiety Patient currently on duloxetine 60 mg daily per chart review, ordered (11) Nutrition, metabolism, and development symptoms Code(s): R63.8 - Other symptoms and signs concerning food and fluid intake Status: Acute Plan: -Fluids: Tolerating fluids by mouth with appropriate hydration Diet: Diabetic diet as tolerated Electrolytes: Check BMP in a.m. Prophylaxis: Calcium carbonate as needed for reflux, clonidine as needed for hypertension, DuoNeb's as needed for shortness of breath, Zofran as needed for nausea/vomiting, Manisha-Colace scheduled for constipation, multivitamin daily (12) DVT prophylaxis Status: Acute Plan: Patient to start Eliquis twice daily today as she is postop day 1, per orthopedic surgery <Torres Morrow - 01/01/18 11:13> - Attending Attestation The exam, history, and the medical decision-making described in the above note were completed with the assistance of the resident physician. I reviewed and agree with the findings presented. I attest that I had a [id number] encounter with the patient on the same day, and personally performed and documented my assessment and findings in the medical record. she is doing very well post op. Dr Morrow straightened out her antidepressants <Treva Mittal - 01/06/18 15:56>
[2018-01-01] MEDS: Duloxetine 60 MG DR Capsule PO SCH (14:48)
[2018-01-01] MEDS: Gabapentin 300 MG Capsule PO SCH (20:55)
[2018-01-01] MEDS ORDERED: Citalopram 20 MG Tablet PO ONE (21:41)
[2018-01-02 01:36] VITALS: RESP 18
[2018-01-02 05:31] LABS: Baso % (Auto) 0.3 % (0.0-2.0); Eos # (Auto) 0.2 th/mm3 (0.0-0.4); Eos % (Auto) 2.2 % (0.0-4.0); Hematocrit 28.4 % (35.0-46.0); Hemoglobin 9.5 gm/dL (11.6-15.3); Lymph # (Auto) 1.7 th/mm3 (1.0-4.8); Lymph % (Auto) 21.2 % (9.0-44.0); Mean Corpuscular HGB Conc 33.6 % (32.0-36.0); Mean Corpuscular Hemoglobin 28.4 pg (27.0-34.0); Mean Corpuscular Volume 84.6 fL (80.0-100.0); Mean Platelet Volume 8.7 fL (7.0-11.0); Mono # (Auto) 0.8 th/mm3 (0.0-0.9); Mono % (Auto) 9.3 % (0.0-8.0); Neut # (Auto) 5.5 th/mm3 (1.8-7.7); Platelet Count 210 th/mm3 (150-450); Red Blood Count 3.35 mil/mm3 (4.00-5.30); Red Cell Distribution Width 14.4 % (11.6-17.2); White Blood Count 8.3 th/mm3 (4.0-11.0)
[2018-01-02 05:53] LABS: Alanine Aminotransferase 15 U/L (10-53); Albumin 3.4 g/dL (3.4-5.0); Anion Gap 8 meq/L (5-15); Aspartate Aminotransferase 14 U/L (15-37); Blood Urea Nitrogen 20 mg/dL (7-18); Calcium 8.3 mg/dL (8.5-10.1); Carbon Dioxide 28.3 meq/L (21.0-32.0); Chloride 109 meq/L (98-107); Glomerular Filtration Rate 58 mL/min (>89); Glucose,Random 109 mg/dL (74-106); Sodium 145 meq/L (136-145)
[2018-01-02 05:55] LABS: Alkaline Phosphatase 55 U/L (45-117); Total Protein 6.2 g/dL (6.4-8.2)
--- NOTE | 2018-01-02 08:54 | P.PNFP ---
Subjective Interval history: Patient seen and examined this morning. No acute events overnight per nursing staff. Overnight medical team paged by staff that patient was requesting daily Celexa which was ordered. Per chart review, there was discussion of her being weaned off the medication at her previous appointment in December. Yesterday we discussed this medication and she stated that "she did not know if she took the medication." Of note, patient had recently received pain medication which could have altered her mentation. Otherwise she has no acute complaints. She states that her pain is better than it was yesterday she is hopeful she can go home "either today or tomorrow." Patient has not yet had a bowel movement, but does endorse passing bowel gas. She denies a complete review of systems at this time including but not limited to any fever, chills, shortness of breath, chest pain, NVD, abdominal pain, or calf tenderness. <Torres Morrow H - 01/02/18 08:54> Results - Labs Result diagrams: 01/02/18 05:02 01/02/18 05:02 <Treva Mittal M - 01/06/18 15:58> Abnormal lab results 01/02/18 01/02/18 Range/Units 05:02 05:02 RBC 3.35 L (4.00-5.30) mil/mm3 Hgb 9.5 L (11.6-15.3) gm/dL Hct 28.4 L (35.0-46.0) % [place] % (Auto) 9.3 H (0.0-8.0) % Chloride 109 H (98-107) meq/L BUN 20 H (7-18) mg/dL Estimated GFR 58 L (>89) mL/min Random Glucose 109 H (74-106) mg/dL Calcium 8.3 L (8.5-10.1) mg/dL AST 14 L (15-37) U/L Total Protein 6.2 L (6.4-8.2) g/dL Short CBC 01/02/18 Range/Units 05:02 WBC 8.3 (4.0-11.0) th/mm3 Hgb 9.5 L (11.6-15.3) gm/dL Hct 28.4 L (35.0-46.0) % Plt Count 210 (150-450) th/mm3 BMP 01/02/18 05:02 Sodium 145 Potassium 4.0 Chloride 109 H Carbon Dioxide 28.3 BUN 20 H Creatinine 0.92 Calcium 8.3 L Liver Function 01/02/18 Range/Units 05:02 Total Bilirubin 0.5 (0.2-1.0) mg/dL AST 14 L (15-37) U/L ALT 15 (10-53) U/L Alkaline Phosphatase 55 (45-117) U/L Albumin 3.4 (3.4-5.0) g/dL <Torres Morrow - 01/02/18 08:54> Physical Exam Vital signs: Vital Signs 01/01/18 19:32 01/01/18 20:00 01/02/18 00:00 Temperature 98.2 F 98.2 F 98.4 F Pulse Rate 81 90 80 Respiratory Rate 18 Blood Pressure 164/71 H 162/72 H 151/70 H Pulse Oximetry 98 97 95 Intake & Output 01/01/18 01/02/18 01/02/18 18:59 06:59 18:59 Intake Total 580 / 580 Balance 580 / 580 Weight 69.2 kg Intake: IV 100 / 100 Oral 480 / 480 Other: # Voids 2 Date of Last Bowel Movement 12/30/17 12/30/17 <Torres Morrow - 01/02/18 08:54> Narrative: GENERAL: Elderly female sitting up in bed eating breakfast watching television in no acute distress. SKIN: Warm and dry. No rash based on limited skin exam. HEENT: Atraumatic, normocephalic with extraocular motions intact. No rhinorrhea. No visible lymphadenopathy or jugulovenous distension appreciated. CARDIOVASCULAR: Regular rate and rhythm without obvious murmurs, gallops, or rubs. 2+ pulses in all four extremities. RESPIRATORY: Clear to auscultation bilaterally with no crackles, wheezes, or rhonchi. No increased work of breathing. GASTROINTESTINAL: Abdomen soft, non-tender, nondistended with positive bowel sounds. No masses appreciated. MUSCULOSKELETAL: No cyanosis or edema. No left calf tenderness. RLE: Right lower extremity currently Saroj wrapped with device for icing the knee in place. Saroj wrap CDI. 2+ DP/PT pulses. Appropriate capillary refill. Normal range of motion at the ankle and digits with appropriate strength. NEURO/PSYCH: Afocal. Awake, alert, and oriented. Normal speech and judgement. 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 Code(s): T84.012A - Broken internal right knee prosthesis, initial encounter Status: Acute (3) History of TIA (transient ischemic attack) Code(s): Z86.73 - Personal history of transient ischemic attack (TIA), and cerebral infarction without residual deficits Status: Acute (4) GERD (gastroesophageal reflux disease) Code(s): K21.9 - Gastro-esophageal reflux disease without esophagitis Status: Acute (5) Overactive bladder Code(s): N32.81 - Overactive bladder Status: Acute (6) Type 2 diabetes mellitus Code(s): E11.9 - Type 2 diabetes mellitus without complications Status: Acute (7) Hypertension Code(s): I10 - Essential (primary) hypertension Status: Acute (8) Hyperlipidemia Code(s): E78.5 - Hyperlipidemia, unspecified Status: Acute (9) Ulcerative colitis Code(s): K51.90 - Ulcerative colitis, unspecified, without complications Status: Acute (10) Anxiety Code(s): F41.9 - Anxiety disorder, unspecified Status: Acute (11) Nutrition, metabolism, and development symptoms Code(s): R63.8 - Other symptoms and signs concerning food and fluid intake Status: Acute (12) DVT prophylaxis Status: Acute <Treva Mittal - 01/06/18 15:58> (1) Status post revision of total replacement of right knee Code(s): Z96.651 - Presence of right artificial knee joint Status: Acute Plan: Patient admitted under orthopedic surgery service for revision of her right knee arthroplasty Procedure uncomplicated per report Patient currently without complaint and pain controlled Continue with hydrocodone as needed for pain Patient to continue with PT Per orthopedic surgery, plan for possible discharge home tomorrow with home health and physical therapy (2) 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 Code(s): T84.012A - Broken internal right knee prosthesis, initial encounter Status: Acute Plan: Please see plan as above (3) History of TIA (transient ischemic attack) Code(s): Z86.73 - Personal history of transient ischemic attack (TIA), and cerebral infarction without residual deficits Status: Acute Plan: Patient with history of TIA Continue home aspirin Patient currently anticoagulated post procedure on Eliquis (4) GERD (gastroesophageal reflux disease) Code(s): K21.9 - Gastro-esophageal reflux disease without esophagitis Status: Acute Plan: Patient with history of gastroesophageal reflux disease Calcium carbonate as needed for reflux (5) Overactive bladder Code(s): N32.81 - Overactive bladder Status: Acute Plan: Patient with history of overactive bladder Continue Toviaz, patient to bring medication for verification as it is not on formulary (6) Type 2 diabetes mellitus Code(s): E11.9 - Type 2 diabetes mellitus without complications Status: Acute Plan: Patient with previous history of type 2 diabetes mellitus Patient currently controlling glucose via dietary measures with most recent hemoglobin A1c per chart review of 6.2 Diabetic diet ordered -Patient to continue with daily gabapentin for diabetic neuropathy BMP with glucose of 109 (7) Hypertension Code(s): I10 - Essential (primary) hypertension Status: Acute Plan: Patient with a history of essential hypertension Continue with lisinopril 40 mg daily (8) Hyperlipidemia Code(s): E78.5 - Hyperlipidemia, unspecified Status: Acute Plan: Patient with history of hyperlipidemia Continue with atorvastatin 40 mg daily (9) Ulcerative colitis Code(s): K51.90 - Ulcerative colitis, unspecified, without complications Status: Acute Plan: Patient with history of ulcerative colitis -Continue with Balsalazide 3 times daily, patient to bring medication for pharmacy verification as it is not on formulary (10) Anxiety Code(s): F41.9 - Anxiety disorder, unspecified Status: Acute Plan: Patient with history of anxiety Patient currently on duloxetine 60 mg daily per chart review, ordered Patient requesting daily Celexa, ordered (11) Nutrition, metabolism, and development symptoms Code(s): R63.8 - Other symptoms and signs concerning food and fluid intake Status: Acute Plan: -Fluids: Tolerating fluids by mouth with appropriate hydration Diet: Diabetic diet as tolerated Electrolytes: Within normal limits, continue to monitor and replete as needed Prophylaxis: Calcium carbonate as needed for reflux, clonidine as needed for hypertension, DuoNeb's as needed for shortness of breath, Zofran as needed for nausea/vomiting, Manisha-Colace scheduled for constipation, multivitamin daily (12) DVT prophylaxis Status: Acute Plan: Patient to start Eliquis twice daily today as she is postop day 1, per orthopedic surgery <Torres Morrow - 01/02/18 09:47> - Assessment and Plan Patient cleared for discharge from Medical Service. Patient to follow up with PCP. <Torres Morrow - 01/02/18 09:47> - Attending Attestation The exam, history, and the medical decision-making described in the above note were completed with the assistance of the resident physician. I reviewed and agree with the findings presented. I attest that I had a [id number] encounter with the patient on the same day, and personally performed and documented my assessment and findings in the medical record. she is able to walk well with her walker and will go home with her daughter to help her <Treva Mittal M - 01/06/18 15:58> <Torres Morrow H - Last Filed: 01/02/18 09:47> (4) GERD (gastroesophageal reflux disease) Qualifiers: Esophagitis presence: esophagitis presence not specified Qualified Code(s): K21.9 - Gastro-esophageal reflux disease without esophagitis (7) Hypertension Qualifiers: Hypertension type: essential hypertension Qualified Code(s): I10 - Essential (primary) hypertension (8) Hyperlipidemia Qualifiers: Hyperlipidemia type: unspecified Qualified Code(s): E78.5 - Hyperlipidemia, unspecified <Treva Mittal M - Last Filed: 01/06/18 15:58> (4) GERD (gastroesophageal reflux disease) Qualifiers: Esophagitis presence: esophagitis presence not specified Qualified Code(s): K21.9 - Gastro-esophageal reflux disease without esophagitis (7) Hypertension Qualifiers: Hypertension type: essential hypertension Qualified Code(s): I10 - Essential (primary) hypertension (8) Hyperlipidemia Qualifiers: Hyperlipidemia type: unspecified Qualified Code(s): E78.5 - Hyperlipidemia, unspecified <Torres Morrow - Last Filed: 01/02/18 09:47> (4) GERD (gastroesophageal reflux disease) Qualifiers: Esophagitis presence: esophagitis presence not specified Qualified Code(s): K21.9 - Gastro-esophageal reflux disease without esophagitis (7) Hypertension Qualifiers: Hypertension type: essential hypertension Qualified Code(s): I10 - Essential (primary) hypertension (8) Hyperlipidemia Qualifiers: Hyperlipidemia type: unspecified Qualified Code(s): E78.5 - Hyperlipidemia, unspecified <Treva Mittal M - Last Filed: 01/06/18 15:58> (4) GERD (gastroesophageal reflux disease) Qualifiers: Esophagitis presence: esophagitis presence not specified Qualified Code(s): K21.9 - Gastro-esophageal reflux disease without esophagitis (7) Hypertension Qualifiers: Hypertension type: essential hypertension Qualified Code(s): I10 - Essential (primary) hypertension (8) Hyperlipidemia Qualifiers: Hyperlipidemia type: unspecified Qualified Code(s): E78.5 - Hyperlipidemia, unspecified
[2018-01-02] MEDS: Potassium Chloride 10 MEQ ER Capsule PO SCH (08:57)
[2018-01-02] MEDS: Lisinopril 20 MG Tablet PO SCH (08:57)
[2018-01-02] MEDS: Calcium/Vitamin D 250/125 MG Tablet PO SCH (08:58)
[2018-01-02] MEDS: Duloxetine 60 MG DR Capsule PO SCH (08:58)
[2018-01-02] MEDS: Senna/Docusate Sodium 8.6/50 MG Tablet PO SCH (08:59)
[2018-01-02] MEDS: Multivitamin/Minerals Therapeutic Tablet PO SCH (08:59)
[2018-01-02] MEDS: BALSALAZIDE 750 MG PO SCH ×2 (09:00→14:43)
--- NOTE | 2018-01-02 10:23 | P.PNOP ---
Subjective Interval history: Patient comfortable today. No complaints. Physical Exam Vital signs: Vital Signs 01/01/18 19:32 01/01/18 20:00 01/02/18 00:00 Temperature 98.2 F 98.2 F 98.4 F Pulse Rate 81 90 80 Respiratory Rate 18 16 18 Blood Pressure 164/71 H 162/72 H 151/70 H Pulse Oximetry 98 97 95 Intake & Output 01/01/18 01/02/18 01/02/18 18:59 06:59 18:59 Intake Total 580 / 580 Balance 580 / 580 Weight 69.2 kg Intake: IV 100 / 100 Oral 480 / 480 Other: # Voids 2 Date of Last Bowel Movement 12/30/17 12/30/17 - Constitutional no acute distress Results - Labs CBC & Chem 7: 01/02/18 05:02 01/02/18 05:02 Laboratory Results - last 24 hr 01/02/18 01/02/18 05:02 05:02 WBC 8.3 RBC 3.35 L Hgb 9.5 L Hct 28.4 L MCV 84.6 MCH 28.4 MCHC 33.6 RDW 14.4 Plt Count 210 MPV 8.7 Neut % (Auto) 67.0 Lymph % (Auto) 21.2 Wilcox % (Auto) 9.3 H Eos % (Auto) 2.2 Baso % (Auto) 0.3 Neut # (Auto) 5.5 Lymph # (Auto) 1.7 Wilcox # (Auto) 0.8 Eos # (Auto) 0.2 Baso # (Auto) 0.0 WBC Differential . Differential Comment Auto diff final Sodium 145 Potassium 4.0 Chloride 109 H Carbon Dioxide 28.3 Anion Gap 8 BUN 20 H Creatinine 0.92 Estimated GFR 58 L Random Glucose 109 H Calcium 8.3 L Total Bilirubin 0.5 AST 14 L ALT 15 Alkaline Phosphatase 55 Total Protein 6.2 L Albumin 3.4 Microbiology 12/31/17 13:38 Wound - Knee Gram Stain - Final 12/31/17 13:38 Wound - Knee Wound Culture - Preliminary No growth in 48 hours 12/31/17 13:38 Wound - Knee Acid Fast Bacilli Smear - Final No acid fast bacilli seen 12/31/17 13:38 Wound - Knee Fungal Smear - Final No fungal elements seen Assessment and Plan - Problem List (1) Status post revision of total replacement of right knee Code(s): Z96.651 - Presence of right artificial knee joint Status: Acute - Attending Attestation Attending Attestation: Patient sitting up in chair. Neurovascularly intact to toes. Dressing dry and intact. No calf tenderness. Plan is for the patient to have physical therapy this afternoon and then be discharged to home with home health care and physical therapy. She has an appointment for follow-up in the office.
[2018-01-02 10:37] VITALS: BP 143/67; PULSE 75; TEMP 98; O2SAT 94
--- NOTE | 2018-01-02 21:30 | MD ---
cc: Kevin Dumont MD DATE OF DISCHARGE: 01/02/2018 ADMITTING DIAGNOSIS: Failed right total knee arthroplasty. DISCHARGE DIAGNOSIS: Failed right total knee arthroplasty. DISCHARGE SUMMARY: This pleasant 82-year-old female was admitted 12/31/2017 with a failed right total knee arthroplasty. She underwent a revision total knee arthroplasty with a patella and tibial insert components implanted. She received a course of prophylactic IV antibiotics and within 23 hours, started on anticoagulation therapy. She continued to improve with physical therapy, remaining afebrile. Vital signs stable and neurovascularly intact. She was discharged on second postoperative day, in good condition with instructions for home health care, physical therapy and followup in the office. She was discharged in good condition. Bc. Boyd Dumont MD JRR/sj , 10:28 AM , 10:31 AM
== END 2018-01-02 15:52 | disposition home health service (06) ==
LOC: INTOOBSV 09:54 → HSDI 09:54 → N06 17:42
PROVIDERS: ADMIT Surgery; ATTEND Surgery
DX: E78.00 Pure hypercholesterolemia, unspecified; Z98.49 Cataract extraction status, unspecified eye; Z79.899 Other long term (current) drug therapy; Y79.2 Prosthetic and other implants, materials and accessory orthopedic devices associated with adverse incidents; F41.9 Anxiety disorder, unspecified; T84.012A Broken internal right knee prosthesis, initial encounter; E78.5 Hyperlipidemia, unspecified; K51.90 Ulcerative colitis, unspecified, without complications; E11.40 Type 2 diabetes mellitus with diabetic neuropathy, unspecified; Z96.1 Presence of intraocular lens; Z79.84 Long term (current) use of oral hypoglycemic drugs; Z79.82 Long term (current) use of aspirin; Z87.442 Personal history of urinary calculi; I10 Essential (primary) hypertension; K21.9 Gastro-esophageal reflux disease without esophagitis; N32.81 Overactive bladder; Z87.891 Personal history of nicotine dependence; Z86.73 Personal history of transient ischemic attack (TIA), and cerebral infarction without residual deficits